=== PATIENT | female | born 1940 | race Caucasian/White ===

== ENCOUNTER 2021-09-16 14:43 | Outpatient (CLI) | payer MEDICARE | END 2021-09-16 14:44 | disposition home or self-care (01) | LOC: BICULT 14:43 | PROVIDERS: ATTEND Internal Medicine Nephrology | DX: N18.30 Chronic kidney disease, stage 3 unspecified (principal) | CPT/HCPCS: 76770 ==

== ENCOUNTER 2023-04-04 20:00 | Emergency (ER) | payer MEDICARE ==
[2023-04-04] MEDS ORDERED: Lidocaine 1% w/Epinephrine 1:100K 20 ML VIAL ONE (20:11)
[2023-04-04] MEDS ORDERED: Bacitracin 1 PK ONE (20:52)
== END 2023-04-05 01:03 | disposition home or self-care (01) ==
LOC: ERS 20:00
DX: S81.811A Laceration without foreign body, right lower leg, initial encounter (principal); E11.9 Type 2 diabetes mellitus without complications; I10 Essential (primary) hypertension; E78.5 Hyperlipidemia, unspecified; E03.9 Hypothyroidism, unspecified; J44.9 Chronic obstructive pulmonary disease, unspecified; Z79.84 Long term (current) use of oral hypoglycemic drugs; W18.30XA Fall on same level, unspecified, initial encounter
CPT/HCPCS: 12004; 99283

== ENCOUNTER 2023-05-12 12:52 | Inpatient (IN) | payer MEDICARE, SELFPAY ==
[2023-05-12 13:22] LABS: #Monocytes 0.7 thou/uL (0.11-0.59); #Neutrophils 5.4 thou/uL (1.40-6.50); %Basophils 0.5 % (0.0-1.0); %Eosinophils 0.3 % (0.0-10.0); %Monocytes 9.8 % (0.0-10.0); %Neutrophils 73.1 % (42.0-75.0); Hematocrit 41.7 % (36.0-47.0); Hemoglobin 12.8 g/dL (12.0-16.0); Mean Corpuscular HGB CONC 30.7 g/dL (32.0-36.0); Mean Corpuscular Hemoglobin 30.1 pg (27.0-31.0); Mean Corpuscular Volume 98.1 fl (78.0-98.0); Mean Platelet Volume 10.5 fL (7.4-10.4); Platelet Count 299 10x3/uL (130-400); RBC Distribution Width 17.2 % (11.5-14.5); Red Blood Cell (RBC) Count 4.25 mill/uL (4.20-5.40); White Blood Cell (WBC) Count 7.4 10x3/uL (4.8-10.8)
[2023-05-12 13:44] LABS: ALT (SGPT) 10 U/L (8-55); AST (SGOT) 19 U/L (5-34); Albumin 2.9 g/dL (3.4-4.8); Alkaline Phosphatase 111 U/L (40-110); Anion Gap 13 mmol/L (10-20); BUN (Urea Nitrogen) 12 mg/dL (9.8-20.1); Bilirubin, Total 0.3 mg/dL (0.2-1.2); Calc. Creatinine Clearance 0 mL/min (70-130); Calcium 8.6 mg/dL (7.8-10.44); Carbon Dioxide 32 mmol/L (23-31); Chloride 99 mmol/L (98-107); Estimated GFR 65; Globulin 3.1 g/dL (2.4-3.5); Glucose 108 mg/dL (83-110); Magnesium 1.6 mg/dL (1.6-2.6); Potassium 3.6 mmol/L (3.5-5.1); Sodium 140 mmol/L (136-145)
[2023-05-12 13:58] LABS: Troponin I 0.017 ng/mL (< 0.028)
[2023-05-12] MEDS ORDERED: Furosemide 40 MG (4 mL) VIAL ONE (14:28)
[2023-05-12] MEDS ORDERED: Nitroglycerin 2% Ointment 1 INCH/1 GM Packet ONE (14:28)
[2023-05-12] MEDS ORDERED: Ondansetron PF 4 MG/2 ML Vial IVP PRN (15:35)
[2023-05-12] MEDS ORDERED: Acetaminophen 325 MG TAB PO PRN (15:35)
[2023-05-12] MEDS ORDERED: Bisacodyl 5 MG TAB PO PRN (15:35)
[2023-05-12] MEDS ORDERED: Dextrose 5% in Water 1,000 ML IV PRN (15:40)
[2023-05-12] MEDS ORDERED: Glucagon 1 MG/ML KIT IM PRN (15:40)
[2023-05-12] MEDS ORDERED: Dextrose 50% Abboject 50 ML SYRINGE SLOW IVP PRN (15:40)
[2023-05-12] MEDS ORDERED: Ipratropium/Albuterol 3 ML NEB ONE (16:37)
[2023-05-12 17:21] LABS: SARS-CoV-2 NAA Rapid Test Not Detected (NotDetected)
[2023-05-12 19:13] LABS: Troponin I 0.014 ng/mL (< 0.028)
[2023-05-12] MEDS: Gabapentin 300 MG CAP PO SCH (20:38)
[2023-05-12] MEDS: Apixaban 5 MG TAB PO SCH (20:38)
[2023-05-12 21:52] LABS: Troponin I 0.011 ng/mL (< 0.028)
[2023-05-13] MEDS ORDERED: HumaLOG 300 UNITS/3 ML VIAL SC PRN (03:25)
[2023-05-13 04:07] LABS: Actual Bicarbonate (HCO3v) 31.9 mEq/L (22-28); Base Excess 3.7 mEq/L (-2.0 to +3.0); Calcium, Ionized (venous) 1.11 mmol/L (1.16-1.32); Chloride (VBG) 99 mmol/L (98-106); Hematocrit-VBG 41 % (36.0-47.0); Hemoglobin (Hb) 13.9 g/dL (11.7-16.1); Potassium (VBG) 2.95 mmol/L (3.70-5.30); Sodium 143 mmol/L (133-146); pH (venous) 7.307 (7.32-7.43)
[2023-05-13 04:20] LABS: #Eosinphils 0.1 thou/uL (0.0-0.7); #Monocytes 0.6 thou/uL (0.11-0.59); #Neutrophils 4.5 thou/uL (1.40-6.50); %Basophils 0.5 % (0.0-1.0); %Eosinophils 0.8 % (0.0-10.0); %Monocytes 9.4 % (0.0-10.0); %Neutrophils 72.1 % (42.0-75.0); Hematocrit 43.6 % (36.0-47.0); Hemoglobin 13.2 g/dL (12.0-16.0); Mean Corpuscular HGB CONC 30.3 g/dL (32.0-36.0); Mean Corpuscular Hemoglobin 30.4 pg (27.0-31.0); Mean Corpuscular Volume 100.5 fl (78.0-98.0); Mean Platelet Volume 10.6 fL (7.4-10.4); Platelet Count 282 10x3/uL (130-400); RBC Distribution Width 17.2 % (11.5-14.5); Red Blood Cell (RBC) Count 4.34 mill/uL (4.20-5.40); White Blood Cell (WBC) Count 6.2 10x3/uL (4.8-10.8)
[2023-05-13] MEDS: hydrALAZINE 20 MG/ML VIAL SLOW IVP SCH (04:20)
[2023-05-13 04:42] LABS: Anion Gap 10 mmol/L (10-20); BUN (Urea Nitrogen) 13 mg/dL (9.8-20.1); Calc. Creatinine Clearance 65 mL/min (70-130); Calcium 8.6 mg/dL (7.8-10.44); Carbon Dioxide 36 mmol/L (23-31); Chloride 101 mmol/L (98-107); Estimated GFR 75; Glucose 101 mg/dL (83-110); Magnesium 1.6 mg/dL (1.6-2.6); Potassium 2.8 mmol/L (3.5-5.1); Sodium 144 mmol/L (136-145)
[2023-05-13] MEDS: Furosemide 40 MG (4 mL) VIAL SLOW IVP SCH ×3 (05:00→05:46)
[2023-05-13] MEDS ORDERED: Ipratropium/Albuterol 3 ML NEB EZPAP PRN (05:05)
[2023-05-13] MEDS: Potassium Chloride 20 MEQ TAB PO SCH (05:16)
[2023-05-13] MEDS: Ipratropium/Albuterol 3 ML NEB EZPAP PRN (05:22)
[2023-05-13] MEDS: Magnesium 2 GM/50 ML(in water) 2 GM in Premix 1 BAG IVPB SCH (05:24)
[2023-05-13] MEDS: Levothyroxine Sodium 112 MCG TAB PO SCH (05:25)
[2023-05-13] MEDS: Potassium Chloride 20 MEQ in Premix 1 BAG IVPB SCH (05:25)
[2023-05-13] MEDS: methylPREDNISolone Sod Succ/PF 125 MG/2 ML VIAL IVP SCH (05:46)
[2023-05-13 06:22] LABS: Base Excess 4.8 mEq/L (-2.0 to +3.0); Calcium, Ionized (venous) 1.09 mmol/L (1.16-1.32); Chloride (VBG) 99 mmol/L (98-106); Hematocrit-VBG 42 % (36.0-47.0); Hemoglobin (Hb) 14.2 g/dL (11.7-16.1); Potassium (VBG) 3.38 mmol/L (3.70-5.30); Sodium 144 mmol/L (133-146); pH (venous) 7.355 (7.32-7.43)
[2023-05-13 08:31] LABS: BUN (Urea Nitrogen) 11 mg/dL (9.8-20.1); Calc. Creatinine Clearance 68 mL/min (70-130); Calcium 8.9 mg/dL (7.8-10.44); Estimated GFR 78; Glucose 125 mg/dL (83-110)
[2023-05-13 08:40] LABS: Anion Gap 18 mmol/L (10-20); Carbon Dioxide 30 mmol/L (23-31); Chloride 99 mmol/L (98-107); Potassium 3.9 mmol/L (3.5-5.1); Sodium 143 mmol/L (136-145)
[2023-05-13] MEDS ORDERED: Enoxaparin 40 MG (0.4 mL) SYRINGE SC SCH (09:00)
[2023-05-13] MEDS: Ipratropium/Albuterol 3 ML NEB NEB SCH ×2 (11:50→14:58)
[2023-05-13] MEDS: HumaLOG 300 UNITS/3 ML VIAL SC PRN (12:19)
[2023-05-14 04:32] LABS: #Monocytes 0.8 thou/uL (0.11-0.59); #Neutrophils 6.4 thou/uL (1.40-6.50); %Basophils 0.4 % (0.0-1.0); %Monocytes 9.9 % (0.0-10.0); %Neutrophils 75.3 % (42.0-75.0); Hematocrit 41.7 % (36.0-47.0); Hemoglobin 12.5 g/dL (12.0-16.0); Mean Corpuscular Hemoglobin 29.1 pg (27.0-31.0); Mean Corpuscular Volume 97.2 fl (78.0-98.0); Platelet Count 287 10x3/uL (130-400); RBC Distribution Width 16.8 % (11.5-14.5); Red Blood Cell (RBC) Count 4.29 mill/uL (4.20-5.40); White Blood Cell (WBC) Count 8.5 10x3/uL (4.8-10.8)
[2023-05-14 04:54] LABS: Anion Gap 10 mmol/L (10-20); BUN (Urea Nitrogen) 19 mg/dL (9.8-20.1); Calc. Creatinine Clearance 54 mL/min (70-130); Calcium 8.6 mg/dL (7.8-10.44); Carbon Dioxide 36 mmol/L (23-31); Chloride 100 mmol/L (98-107); Estimated GFR 60; Glucose 109 mg/dL (83-110); Potassium 3.4 mmol/L (3.5-5.1); Sodium 143 mmol/L (136-145)
[2023-05-14] MEDS ORDERED: Potassium Bicarbonate/Cit Ac 20 MEQ TAB PO SCH (06:30)
[2023-05-14] MEDS: Potassium Chloride 20 MEQ TAB PO SCH (06:59)
[2023-05-14 09:35] VITALS: BMI 28.8
[2023-05-14 15:37] VITALS: BP 141/65; TEMP 98.5
[2023-05-15] MEDS ORDERED: Empagliflozin 10 MG TAB PO SCH (09:00)
== END 2023-05-14 19:20 | DRG 291 ==
LOC: ERS 12:52 → ERHOLD 14:36 → 2NO 19:45
PROVIDERS: ADMIT Internal Medicine; ATTEND Emergency Medicine
DX: I11.0 Hypertensive heart disease with heart failure (principal); I50.33 Acute on chronic diastolic (congestive) heart failure; J96.01 Acute respiratory failure with hypoxia; I48.20 Chronic atrial fibrillation, unspecified; J44.1 Chronic obstructive pulmonary disease with (acute) exacerbation; E11.40 Type 2 diabetes mellitus with diabetic neuropathy, unspecified; E78.5 Hyperlipidemia, unspecified; E03.9 Hypothyroidism, unspecified; Z98.41 Cataract extraction status, right eye; Z79.899 Other long term (current) drug therapy; Z86.16 Personal history of COVID-19; Z98.42 Cataract extraction status, left eye; Z98.890 Other specified postprocedural states; Z82.49 Family history of ischemic heart disease and other diseases of the circulatory system; Z11.52 Encounter for screening for COVID-19
CPT/HCPCS: 36415; 36416; 71045; 80048; 80053; 82805; 83605; 83735; 83880; 84439; 84443; 84484; 85025; 93005; 93306; 94640; 94760; 96374; 97139; J0360; J1815; J1940; J2930; J3475; J3480; J7620